=== PATIENT | male | born 1975 | race Caucasian/White ===

== ENCOUNTER 2018-12-24 12:41 | Outpatient (CLI) | payer OTHER ==
--- NOTE | 2018-12-24 18:52 | EKG ---
Test Reason : SX WORKUP Blood Pressure : / mmHG Vent. Rate : 082 BPM Atrial Rate : 082 BPM P-R Int : 136 ms QRS Dur : 114 ms QT Int : 378 ms P-R-T Axes : 043 002 011 degrees QTc Int : 441 ms Normal sinus rhythm Normal ECG No previous ECGs available Confirmed by BLAS JAY, DR. Guerrero ([id number]) on 12/24/2018 6:52:45 PM Referred By: FRITZ Confirmed By:DR. Yolanda ODONNELL MD
== END 2018-12-24 12:42 | disposition home or self-care (01) ==
LOC: EKG 12:41
PROVIDERS: ATTEND Specialist
DX: E66.01 Morbid (severe) obesity due to excess calories (principal)
CPT/HCPCS: 93005; 93010

== ENCOUNTER 2018-12-29 08:51 | Outpatient (CLI) | payer OTHER | END 2018-12-29 08:52 | disposition home or self-care (01) | LOC: DTY/OP 08:51 | PROVIDERS: ATTEND Specialist | DX: Z01.818 Encounter for other preprocedural examination (principal); E66.01 Morbid (severe) obesity due to excess calories | CPT/HCPCS: 97802 ==

== ENCOUNTER 2019-03-03 07:09 | Outpatient (CLI) | payer OTHER ==
[2019-03-03 12:09] LABS: Hemoglobin A1c 6.2 % (4.0-6.0)
== END 2019-03-03 07:10 | disposition home or self-care (01) ==
LOC: LABBT 07:09
PROVIDERS: ATTEND Specialist
DX: Z01.812 Encounter for preprocedural laboratory examination (principal); E66.01 Morbid (severe) obesity due to excess calories
CPT/HCPCS: 83036

== ENCOUNTER 2019-03-03 14:00 | Inpatient (IN) | payer OTHER ==
--- NOTE | 2019-03-04 08:12 | HP ---
HISTORY OF PRESENT ILLNESS: Chase Maya is a 42-year-old male patient of 336 pounds, 44 BMI, plans to be in July 2019, has attended online seminar and interested in laparoscopic sleeve gastrectomy. His mother has had surgery and he knows several other patients of [facility] that have a good result of sleeve gastrectomy. After the online seminar, he is well informed and questions have been answered. He has arthralgias of his ankles as he takes prednisone and gabapentin 1 to 4 times a year relieving this. He hopes to be more interactive with his children. He is single dad. He states he cannot displayed some of the activities that he would like to involve himself because of his obesity. He understands the risks and benefits, consents. 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 SOCIAL HISTORY: Tobacco, none. Alcohol, rarely socially. 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 He was , single, has an 11 and 14-year-old boys. MEDICATIONS: None. ALLERGIES: NONE. REVIEW OF SYSTEMS: Ten-point noncontributory. 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 He has been large most of his life. He has tried nonsurgical weight loss without durable success. PHYSICAL EXAMINATION: VITAL SIGNS: Weight 336 pounds, height 6 feet 1 inch, 44 BMI. Blood pressure 155/99, pulse 83, and temperature 98.4 degrees. HEAD, EARS, EYES, NOSE, AND THROAT: Unremarkable. LUNGS: Clear to auscultation. CARDIAC: Regular rate and rhythm without murmur or gallop. ABDOMEN: Soft, obese, and nontender. No hernias. EXTREMITIES: Unremarkable. No ankle edema. NEUROLOGIC: Intact. No deficits. ASSESSMENT AND PLAN: Morbid obesity with arthralgias of ankles. We would recommend laparoscopic sleeve gastrectomy. I think his online seminar choice is appropriate. He is committed to weight loss and lifestyle changes have durable results. Job ID: [id number]
--- NOTE | 2019-03-04 11:23 | HP ---
ADDENDUM: Addendum to history and physical #[id number], dictated 12/21/2018. HISTORY OF PRESENT ILLNESS: Chase Maya is a 43-year-old male patient, initially seen by me on December 21, 2018, for morbid obesity, 336 pounds, 6 feet 1 inch, 44 BMI, desiring sleeve gastrectomy visiting our online seminar. Subsequently after that, initial hospital visit, seeing the psychologist, dietary, and obtaining labs. His laboratories are normal. Vitamins are normal. H. pylori is negative. Cholesterol is slightly elevated. Triglycerides are elevated. With comorbidities, elevated cholesterol and triglycerides. He is self-pay. He presents for preoperative visit. In the interval since the last visit, he has dropped 6 pounds, currently today weighing 330 pounds, 43 BMI for 6-pound weight loss. The patient understands the risks and benefits of the surgery, and questions were answered. Office consent was obtained. 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 He understands the risks and benefits and consents for laparoscopic sleeve gastrectomy. Waiting date is scheduled July of 2019. He hopes to be more active and healthy. He has seen a psychologist, and there are no issues relating to his expectations from surgery. PAST MEDICAL HISTORY: Tendinitis, obesity, arthralgias, elevated cholesterol and triglycerides. PAST SURGICAL HISTORY: Appendectomy, shoulder surgery, knee surgery, and right fifth toe amputation as a childhood. FAMILY HISTORY: Noncontributory except for diabetes. REVIEW OF SYSTEMS: Ten-point, noncontributory. SOCIAL HISTORY: Tobacco, none. Alcohol, rarely. 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 He has 2 children. PHYSICAL EXAMINATION: VITAL SIGNS: 6 feet 1 inch. Initially seen in December; 336 pounds, 44 BMI. Currently, 330 pounds, 43 BMI. Blood pressure 147/93, heart rate 81, temperature 99 degrees. HEAD, EARS, EYES, NOSE, AND THROAT: Unremarkable. LUNGS: Clear to auscultation. CARDIAC: Regular rate and rhythm without murmur or gallop. ABDOMEN: Soft and nontender. EXTREMITIES: Unremarkable. No ankle edema. ASSESSMENT: Morbid obesity; elevated cholesterol and triglycerides; and arthralgias, primarily ankles. PLAN: Laparoscopic sleeve gastrectomy. He understands the risks and benefits and consents. Job ID: [id number]
[2019-03-09] MEDS ORDERED: Ketorolac Tromethamine 30 MG/ML VIAL ONE (06:19)
[2019-03-09] MEDS ORDERED: Heparin 5,000 UNITS/ML VIAL ONE (06:19)
[2019-03-09] MEDS ORDERED: Fentanyl 100 MCG/2 ML VIAL ONE ×2 (06:20→08:21)
[2019-03-09] MEDS ORDERED: Midazolam HCl 2 mg/2 ml Vial ONE (06:20)
[2019-03-09] MEDS ORDERED: Scopolamine 1.5 mg/72 hour Patch ONE (06:21)
[2019-03-09] MEDS ORDERED: ceFOXitin 2 GM/50 ML Duplex BAG ONE (06:21)
[2019-03-09] MEDS ORDERED: Naloxone HCl 0.4 mg/ml Vial ONE (06:22)
[2019-03-09] MEDS ORDERED: Bupivacaine PF 0.5% 30 ML VIAL ONE (06:56)
[2019-03-09] MEDS ORDERED: Lidocaine 1% w/Epinephrine 1:100K 20 ML VIAL ONE (06:56)
[2019-03-09] MEDS ORDERED: diphenhydrAMINE 50 MG/ML VIAL IM PRN (07:01)
[2019-03-09] MEDS ORDERED: fentaNYL Citrate/PF 2,000 MCG in Sodium Chloride 0.9% 60 ML IV PRN (07:01)
[2019-03-09] MEDS ORDERED: Promethazine HCl 25 MG/ML VIAL IM PRN ×2 (07:01→07:02)
[2019-03-09] MEDS ORDERED: Zolpidem Tartrate 5 MG TAB PO PRN (07:01)
[2019-03-09] MEDS ORDERED: Ondansetron PF 4 MG/2 ML Vial IVP PRN ×2 (07:01→08:07)
[2019-03-09] MEDS ORDERED: diphenhydrAMINE 50 MG/ML VIAL IVP PRN ×2 (07:01→08:07)
[2019-03-09] MEDS ORDERED: diphenhydrAMINE 25 MG CAP PO PRN (07:01)
[2019-03-09] MEDS ORDERED: Naloxone HCl 0.4 mg/ml Vial IV PRN (07:01)
[2019-03-09] MEDS ORDERED: Ondansetron HCl/PF 4 MG/2 ML Vial IVP PRN (07:02)
[2019-03-09] MEDS ORDERED: Promethazine HCl 25 MG/ML VIAL SLOW IVP PRN (07:02)
[2019-03-09] MEDS ORDERED: Communication Order-Pharmacy FS SCH (07:15)
[2019-03-09] MEDS ORDERED: hydrALAZINE 20 MG/ML VIAL SLOW IVP PRN (08:07)
[2019-03-09] MEDS ORDERED: Acetaminophen 325 MG/10.15 ML UDCUP PO PRN (08:07)
[2019-03-09] MEDS ORDERED: Morphine 2 MG/ML SYRINGE SLOW IVP PRN ×2 (08:07→17:59)
[2019-03-09] MEDS ORDERED: Morphine 4 MG/ML VIAL SLOW IVP PRN ×2 (08:07→17:59)
[2019-03-09] MEDS ORDERED: Hydrocodone-Acetamin 15 ML UDCUP PO PRN (08:07)
[2019-03-09 11:22] VITALS: BMI 26.4
[2019-03-09] MEDS: Multivitamin W/ Minerals 1 TAB PO SCH ×2 (11:35→20:13)
[2019-03-09] MEDS: D5 1/2 NS w/20 mEq KCL 1,000 ML IV SCH ×2 (11:52→16:08)
[2019-03-09] MEDS: Acetaminophen 1,000 MG in Premix Bag 1 BAG IVPB SCH ×2 (11:53→17:44)
[2019-03-09] MEDS: Ketorolac Tromethamine 30 MG/ML VIAL IVP SCH ×3 (11:53→23:59)
[2019-03-09] MEDS: Pantoprazole 40 MG VIAL IVP SCH (11:53)
--- NOTE | 2019-03-09 11:55 | OP ---
DATE OF PROCEDURE: 03/09/2019 PREOPERATIVE DIAGNOSES: 1. Morbid obesity, 336 pounds and 44 BMI on presentation; preoperatively 330 pounds and 43 BMI. 2. Elevated cholesterol and triglycerides. 3. Arthralgias. POSTOPERATIVE DIAGNOSES: 1. Morbid obesity, 336 pounds and 44 BMI on presentation; preoperatively 330 pounds and 43 BMI. 2. Elevated cholesterol and triglycerides. 3. Arthralgias. 4. Hiatal hernia, small. PROCEDURES PERFORMED: 1. Laparoscopic sleeve gastrectomy over 36-Malagasy bougie, staple line within 2 cm of pylorus. 2. Hiatal hernia repair with single suture, 2-0 Bralon posterior repair over 36-Malagasy bougie. 3. Completion endoscopy, visualized the pylorus. No narrowing, no bleeding. Staple line reinforcement is not used. ANESTHESIA: General, local with 0.5% Marcaine 30 mL, mixed with 1% Xylocaine with epinephrine 30 mL, total volume mixture used. DESCRIPTION OF PROCEDURE: The patient was taken to the operating room, where under general anesthesia, abdomen was clipped of hair, prepared with ChloraPrep, and draped in routine fashion. Local anesthetic was infiltrated in the skin and subcutaneous tissue about each port site. Supraumbilical incision made. Pneumoperitoneum to 15 mmHg was obtained with a Veress needle, replaced with a 5 port, laparoscope inserted. Bilateral midclavicular upper abdominal incision was made and 15-mm port placed on the left and 12-mm port placed on the right. Bilateral far lateral stab incision was made and 5-mm port was placed. Subxiphoid incision was made and a 5 port trocar introduced and Susan liver retractor was introduced, retracting the left lobe of the liver anteriorly. The patient was placed in deep reverse Trendelenburg. The gastrocolic ligament was taken down adjacent to the greater curvature using double fires of the LigaSure, freeing the greater curvature of the stomach. Fundus and angle of His visualized. There was a hiatal hernia in the right left crura, dissected free, and gastrohepatic ligament taken down proximally to facilitate this to identify the posterior crura on both sides. Gastrocolic ligament was taken down distally, visualizing the distal stomach and antrum. At this point, a 36-Malagasy bougie placed along the greater curvature, placed orally by Anesthesia, properly positioned. Initial green load fire with subsequent Gold, and then 0 blue load fires of the stapler performed, avoiding encroachment on the incisura, and staying clear at the angle of His. The stomach was partitioned. Sleeve gastrectomy completed. Stomach removed from the 15 port and a [id number] suture of 0 Vicryl placed with a GraNee needle. Staple line reinforced with clips. The posterior crura were then approximated with a single suture of 0 Ethibond. This was approximated loosely, adequately closing the small hiatal hernia. Abdominal cavity irrigated. Good hemostasis ensured. Irrigant and pneumoperitoneum were evacuated after liver retractor removed. All instruments were removed and all skin incisions were approximated with a subdermal 4-0 Monocryl and Kendrick glue applied. Job ID: [id number]
[2019-03-09] MEDS ORDERED: Rocuronium Bromide 10 MG/ML (10ML VIAL) ONE (12:45)
[2019-03-09] MEDS ORDERED: PROPOFOL 200 MG/20 ML VIAL ONE (12:45)
[2019-03-09] MEDS ORDERED: Ondansetron PF 4 MG/2 ML Vial ONE (12:45)
[2019-03-09] MEDS ORDERED: Dexamethasone 20 MG/5 ML VIAL ONE (12:45)
[2019-03-09] MEDS ORDERED: Glycopyrrolate 0.2 MG/ML 5 ML SYRINGE ONE (12:45)
[2019-03-09] MEDS ORDERED: Labetalol HCl 100 MG/20 ML VIAL ONE (12:45)
[2019-03-09] MEDS ORDERED: Esmolol 100 MG/10 ML VIAL ONE (12:45)
[2019-03-09] MEDS ORDERED: Enoxaparin Sodium 40 MG/0.4 ML SYRINGE SC SCH (21:00)
[2019-03-10] MEDS: D5 1/2 NS w/20 mEq KCL 1,000 ML IV SCH ×2 (00:38→07:24)
[2019-03-10 04:59] LABS: #Lymphocytes 1.3 thou/uL (1.20-3.40); #Monocytes 0.8 thou/uL (0.11-0.59); #Neutrophils 8.3 thou/uL (1.40-6.50); %Basophils 0.2 % (0.0-1.0); %Lymphocytes 12.4 % (21.0-51.0); %Monocytes 7.3 % (0.0-10.0); Hemoglobin 13.4 g/dL (14.0-18.0); Mean Corpuscular HGB CONC 33.8 g/dL (32.0-36.0); Platelet Count 234 thou/uL (130-400); RBC Distribution Width 12.3 % (11.5-14.5); Red Blood Cell (RBC) Count 4.61 mill/uL (4.70-6.10); White Blood Cell (WBC) Count 10.4 thou/uL (4.8-10.8)
[2019-03-10 05:19] LABS: Anion Gap 13 mmol/L (10-20); BUN (Urea Nitrogen) 9 mg/dL (8.9-20.6); Calc. Creatinine Clearance 180 mL/min (70-130); Calcium 9.1 mg/dL (7.8-10.44); Carbon Dioxide 25 mmol/L (22-29); Chloride 104 mmol/L (98-107); Estimated GFR-MDRD 72; Glucose 103 mg/dL (70-105); Potassium 4.6 mmol/L (3.5-5.1); Sodium 137 mmol/L (136-145)
[2019-03-10] MEDS: Ketorolac Tromethamine 30 MG/ML VIAL IVP SCH (05:27)
[2019-03-10] MEDS: Acetaminophen 1,000 MG in Premix Bag 1 BAG IVPB SCH ×2 (05:27)
[2019-03-10 08:18] VITALS: BP 124/71; TEMP 97.9
[2019-03-10] MEDS: Pantoprazole 40 MG VIAL IVP SCH (08:50)
[2019-03-10] MEDS: Multivitamin W/ Minerals 1 TAB PO SCH (08:50)
[2019-03-10] MEDS ORDERED: Acetaminophen 500 MG TAB PO PRN (09:27)
[2019-03-10] MEDS ORDERED: Hydrocodone-Acetamin 15 ML UDCUP PO PRN (12:00)
--- NOTE | 2019-03-11 03:21 | DIS ---
DATE OF ADMISSION: 03/09/2019 DATE OF DISCHARGE: 03/10/2019 DISCHARGE DIAGNOSES: Morbid obesity, 336 pounds, 44 BMI on presentation, preoperatively 330 pounds, 43 BMI. Associated comorbidities, elevated cholesterol, triglycerides, arthralgias, small hiatal hernia found at the time of the operation. PROCEDURES PERFORMED: Laparoscopic sleeve gastrectomy, 36-Fijian bougie, small hiatal hernia repaired, single suture. Completion endoscopy. HISTORY: A 43-year-old male, morbidly obese, underwent our bariatric program, preoperative evaluation, presented for laparoscopic sleeve gastrectomy, which he underwent without problems. Postop, he tolerated liquids. His labs were normal postoperatively. Discharge hemoglobin 13.4. He is encouraged to be ambulatory frequently. There are no lifting restrictions. He will be on bariatric liquids and advance to pureed after 2 weeks and then soft foods after 4 weeks. He is well aware of this protocol. He will take Tylenol p.r.n. pain. Resume his home medications. Follow up in my office in 1 to 2 weeks. Job ID: [id number]
[2019-03-11] MEDS ORDERED: Non-Formulary Item 1 EACH (Multivitamin [Multi-Vitamin Daily] 1 TAB) PO SCH (09:00)
== END 2019-03-10 10:02 | disposition home or self-care (01) | DRG 621 ==
LOC: SURG A 03-09 06:02 → SURG B 03-09 10:47
PROVIDERS: ADMIT Specialist; ATTEND Specialist
PROC: 0DB64Z3 Excision of Stomach, Percutaneous Endoscopic Approach, Vertical (ICD-10-PCS; principal; 2019-03-09)
PROC: 0BQT4ZZ Repair Diaphragm, Percutaneous Endoscopic Approach (ICD-10-PCS; 2019-03-09)
PROC: 0DJ08ZZ Inspection of Upper Intestinal Tract, Via Natural or Artificial Opening Endoscopic (ICD-10-PCS; 2019-03-09)
DX: E66.01 Morbid (severe) obesity due to excess calories (principal); M25.572 Pain in left ankle and joints of left foot; M25.571 Pain in right ankle and joints of right foot; E78.2 Mixed hyperlipidemia; K44.9 Diaphragmatic hernia without obstruction or gangrene; Z90.49 Acquired absence of other specified parts of digestive tract; Z89.421 Acquired absence of other right toe(s); Z68.41 Body mass index [BMI] 40.0-44.9, adult
CPT/HCPCS: 80048; 85025; 88307; 88312; 94760; C9113; J0131; J0694; J1100; J1644; J1650; J1885; J2250; J2310; J2405; J2704; J3010; S0020